=== PATIENT | female | born 1955 | race Caucasian/White ===

== ENCOUNTER 2019-05-29 14:30 | Outpatient (RCR) | payer OTHER, SELFPAY ==
--- NOTE | 2019-04-03 17:17 | PTOPEVAL ---
INITIAL PHYSICAL THERAPY EVALUATION and PLAN OF CARE Thank you for referring Alpa to [facility]. Please review, sign, date and return this plan of care MIMI. She will be seen in PT 1x/wk x 6 wks. I agree with and certify that the following plan of care is medically necessary. Referring Physician Date Admitting Provider: Attending Provider: PHYSICIAN NOT ON STAFF Referring Provider: Veronica Serrano *PT Outpatient Evaluation Start: 04/03/19 14:15 Freq: Status: Active Protocol: Document 04/03/19 14:10 SARKIS (Rec: 04/03/19 15:41 SARKIS [id number]) Therapy Assessment Status Assessment Status Assessment Status Evaluation Outpatient Past Medical History Neurological History Hx Epilepsy Yes: at , no tx since 8 yrs old Cardiovascular History Hx Hypercholesterolemia Yes Hx Hypertension Yes Hx Mitral Valve Prolapse Yes Respiratory History Hx Sleep Apnea Yes: CPAP at night Gastrointestinal History Hx Gastroesophageal Reflux Disease Yes Hx Other Gastrointestinal Disorders Yes: anal fissure - healed Genitourinary History Hx Other Genitourinary Disorders Yes: intersitial cystis - 1973 , beginning cystocele Musculoskeletal History Hx Other Musculoskeletal Disorders Yes: R shoulder, R hip pain Endocrine History Hx Endocrine Disorders No Significant History Other History Hx Cancer Yes: L breast 2007-lumpectomy, radiation,pills x 5 yrs Hx Radiation Therapy Yes: 32 treatments for breast ca Hx Other Medical Conditions Yes: venous statsis Evaluation Information Problem Diagnosis anal fissure, pelvic floor weakness Onset Oct 2018 Subjective Information Soft bowel movement - when Query Text:As Reported By Patient/ went to perform hygiene - felt Family something attached - thought it was skin Underwent treatment for anal fissure - MD stated that is now gone. In December - 2018 - saw urologist PAC - saw weakness with pelvic floor - possible bladder prolapse. 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
--- NOTE | 2019-05-15 09:20 | PCPTNOTE ---
Patient called & cancelled scheduled appointment this date due to having to work. Did re schedule re-eval.
--- NOTE | 2019-05-30 10:05 | PTOPEVAL ---
PHYSICAL THERAPY DISCHARGE NOTE Thank you for referring Alpa to [facility]. She was seen x 6 visits. She is independent and compliant with HEP. Most goals were met. I agree with Alpa's discharge from PT. Referring Physician Date Admitting Provider: Attending Provider: PHYSICIAN NOT ON STAFF Referring Provider: Veronica Serrano *PT Outpatient Evaluation Start: 04/03/19 14:15 Freq: Status: Active Protocol: Document 05/29/19 14:40 SARKIS (Rec: 05/30/19 10:04 SARKIS [id number]) Therapy Assessment Status Assessment Status Assessment Status Discharge Evaluation Information Problem Subjective Information Alpa states that she feels Query Text:As Reported By Patient/ that she is doing better with Family the exercises - feeling stronger and able to hold longer. She reports that she does not have any pain in regards to incontinence and constipation, but does still have pelvic floor pain - externally and internally. She also states that she is only having 1-2 episodes of night time frequency. Pain Assessment Timing of Pain Assessment Timing of Pain Assessment Assessment Self Report Self Report Pain Level 0 Pain Score Pain Score 0: Self Report Pelvic Health Evaluation Pelvic Floor Assessment Permission Received for External/ No: external work only Internal Perineal Exam Sustained Levator Ani Strength 3/5 - good lift felt externally with 10 ct hold ability Quick Levator Ani Contraction in 15 9 Seconds Additional Comments lower abdominal mobility/ palpation - decrease in tissue tension, improved bladder mobility present. PT Clinical Summary Clinical Summary Protocol: PTEVCODE PT Clinical Summary Urinary Distress Inventory 6 - 61% Colorectal-Anal Distress Inventory 8 42% Alpa has made gains in PT in regards to levator ani strength - endurance and quick contractions. Subjectively she reports doing better with incontinence and constipation but outcome measures did not
== END 2019-06-01 10:29 | disposition home or self-care (01) ==
LOC: ANHPT 14:30
DX: K60.2 Anal fissure, unspecified (principal)
CPT/HCPCS: 97014; 97110; 97140; 97162; G0283

== ENCOUNTER 2023-09-28 20:30 | Emergency (ER) | payer MEDICARE, OTHER, SELFPAY ==
[2023-09-28 20:32] VITALS: BP 138/68; PULSE 87; RESP 14; TEMP 36.4; O2SAT 100
[2023-09-28 21:11] LABS: Strep Group A RT-PCR NOT DETECTED (Negative)
--- NOTE | 2023-09-29 00:51 | ED.GENADULT ---
HPI - General Adult General Chief complaint: Unspecified Stated complaint: sore throat Time Seen by Provider: 09/28/23 23:48 Source: patient Mode of arrival: ambulatory Limitations: no limitations History of Present Illness HPI narrative: this is a 68-year-old female who presents to the ED for chief complaint of sore throat beginning today. Reports that her granddaughter was recently tested positive for strep throat and she is here for strep test. Denies cough, fevers, chills, abdominal pain, trismus, drooling, dysphagia. Related Data Allergies Allergy/AdvReac Type Severity Reaction Status Date / Time lisinopril Allergy Swelling Verified 09/28/23 20:37 of Lip/Tongue/Throat methylprednisolone AdvReac Unknown Verified 09/28/23 20:37 Review of Systems Review of Systems: All systems as dictated in HPI Exam Narrative: GENERAL: Well-appearing, well-nourished, and in no acute distress. HEAD: Normocephalic, atraumatic. EYES: PERRLA and EOMI. ENT: Mild posterior oropharynx erythema. No edema. Nares clear, no rhinorrhea or epistaxis. Mucous membranes moist. Oropharynx without tonsillar hypertrophy exudate or other lesions. NECK: Supple. mild bilateral submandibular /Anterior cervical chain lymphadenopathy. CHEST: No respiratory distress. Clear to auscultation. No wheezes rales or rhonchi HEART: Regular rate and rhythm. No murmur heard. Normal peripheral pulses. ABDOMEN: Soft, nontender, nondistended, normal active bowel sounds. MSK: Normal range of motion. No edema. SKIN: Warm, dry, no rash. NEURO: Alert and oriented x4. No focal deficits. PSYCH: Normal mood and affect. Course Vital Signs Vital signs: Vital Signs Temperature 97.6 F 09/28/23 20:32 Pulse Rate 87 09/28/23 20:32 Respiratory Rate 14 09/28/23 20:32 Blood Pressure 138/68 09/28/23 20:32 Pulse Oximetry 100 09/28/23 20:32 Oxygen Delivery Room Air 09/28/23 20:32 Temperature 97.6 F 09/28/23 20:32 Pulse Rate 87 09/28/23 20:32 Respiratory Rate 14 09/28/23 20:32 Blood Pressure 138/68 09/28/23 20:32 Pulse Oximetry 100 09/28/23 20:32 Oxygen Delivery Room Air 09/28/23 20:32 Medical Decision Making MDM Narrative Medical decision making narrative: 68-year-old female presenting for evaluation of possible strep throat. Vitals are. Exam shows mild posterior oropharynx erythema but otherwise benign. Strep swab is negative. Shared decision making with patient to avoid treatment with antibiotics today. Proceed with supportive measures for probable viral syndrome. Pt will be discharged in stable condition. Return precautions given and supportive measures discussed. Pt is understanding and agreeable with plan for discharge and follow-up with PCP. Vital Signs Vital Signs: Vital Signs Temperature 97.6 F 09/28/23 20:32 Pulse Rate 87 09/28/23 20:32 Respiratory Rate 14 09/28/23 20:32 Blood Pressure 138/68 09/28/23 20:32 Pulse Oximetry 100 09/28/23 20:32 Oxygen Delivery Room Air 09/28/23 20:32 Temperature 97.6 F 09/28/23 20:32 Pulse Rate 87 09/28/23 20:32 Respiratory Rate 14 09/28/23 20:32 Blood Pressure 138/68 09/28/23 20:32 Pulse Oximetry 100 09/28/23 20:32 Oxygen Delivery Room Air 09/28/23 20:32 Lab Data Labs: Lab Results 09/28/23 Range/Units 20:40 Group A Strep (PCR) Not detected (Negative) Discharge Plan Discharge Clinical Impression: Pharyngitis Patient Disposition: Home, Self-Care Condition: Stable Instructions: Antibiotic Form, Viral Syndrome (ED) Additional Instructions: your exam today is reassuring. no evidence of strep this is likely viral illness which will go away its own. Please take ibuprofen and Tylenol for symptom control If you have any new or worsening symptoms please return to the ER for further evaluation. Follow-up/Referrals: PHYSICIAN NOT ON STAFF,NONSTAFF [Primary Care
[2023-09-29 01:00] VITALS: BP 124/68; PULSE 71; RESP 15; O2SAT 100
== END 2023-09-29 01:00 | disposition home or self-care (01) ==
PROVIDERS: Student in an Organized Health Care Education/Training Program; Emergency Provider Physician Assistant
DX: J02.9 Acute pharyngitis, unspecified (principal)
CPT/HCPCS: 87651; 99283